=== PATIENT | female | born 1985 ===

== ENCOUNTER → 2020-09-08 13:34 | Outpatient (CLI) | payer OTHER, SELFPAY ==
--- NOTE | ~2020-09-08 | XR_ITS ---
XR chest 2V DATE: 09/08/2020 13:47 INDICATION: Pneumonitis due to inhalation of food involvement TECHNIQUE: PA and lateral views COMPARISON: 06/17/2018 PA and lateral chest FINDINGS: Normal heart size. No hilar or mediastinal enlargement. Normally inflated and clear lungs. No pleural effusion or pulmonary vascular congestion or pneumothorax. Included skeletal structures are unremarkable. IMPRESSION: Negative Reviewed, dictated and finalized at location A. NCIAL REPORTING ANALYST IMPRESSION: Negative
== END ==
PROVIDERS: Visit Provider Nurse Practitioner Family
DX: J69.0 Pneumonitis due to inhalation of food and vomit (principal)
CPT/HCPCS: 71046